=== PATIENT | female | born 1965 | race Caucasian/White ===

== ENCOUNTER 2017-01-17 20:50 | Emergency (ER) | payer BC ==
[~2017-01-17] VITALS: Ht 149.9 cm; Wt 79.6 kg
[~2017-01-17 20:50] MED LIST: CLARITIN10 M3 PO; Celestone IM; DAILY VALUE1 EACH PO; DILAUDID4 MG PO; FIORICET,ESG1 TABLET PO; FLONASE16 G1 BOTH NARES; HYDROCODON-ACE1 EAC7 PO; LABETALOL HCL200 MG PO; MIRALAX17 GM PO; MULTI VIT; MYLICON,MYLANTA80 MG PO; NORCO 5/3251 TABLET PO; PENTASA PO; PENTASA500 MG PO; PERCOCET 5/31 TABLET PO; PREDNISONE5 M2 PO; PREDNISONE5 MG PO; PROMETHAZINE HC25 M1 PO; Procardia XL,Adalat PO; VITRON C; VITRON-C TABLE1 EACH PO; ZANTAC150 MG PO; ZOFRAN ODT4 MG PO; ZOFRAN4 MG PO; [UNRECOGNIZED DRUG - OTHER] PO; predniSONE PO
[2017-01-17 21:49] LABS: MCH 26.9 PG (29.0-34.0); MCHC 31.3 G/DL (30.0-36.0); MCV 85.8 FL (83-99); MEAN PLAT.VOLUME 10.1 uM^3 (9.5-12.4); PLATELET COUNT 350 K/uL (156-360); RBC DIS.WIDTH-SD 43.6 % (39-53); RED BLOOD COUNT 4.43 M/uL (3.80-5.20); WHITE BLOOD COUNT 8.2 K/uL (4.1-10.2)
[2017-01-17 21:59] LABS: CHLORIDE 103 mEq/L (99-109); POTASSIUM 3.6 mEq/L (3.7-5.4); SODIUM 141 mEq/L (136-147)
[2017-01-17 22:01] LABS: GLUCOSE 93 mg/dL (70-99)
[2017-01-17 22:02] LABS: ANION GAP 13 MEQ/L (2-14)
[2017-01-17 22:04] LABS: GFR ESTIMATE (CALCULATED) > 59 mL/min/
[2017-01-17 22:05] LABS: UREA NITROGEN (BUN) 15 mg/dL (9-23)
[2017-01-17 22:10] LABS: TROP-I INTERPRETATION NEGATIVE; TROPONIN-I < 0.01 ng/mL (0.0-0.30)
[2017-01-17 23:53] LABS: D-DIMER ELISA 0.36 mg/L FEU (< 0.57)
[2017-01-18] MEDS ORDERED: VENTOLIN HFA18 GM IH (00:40)
[2017-01-18] MEDS ORDERED: ULTRAM50 MG PO (00:41)
[2017-01-18 00:46] LABS: TROP-I INTERPRETATION NEGATIVE; TROPONIN-I < 0.01 ng/mL (0.0-0.30)
[2017-01-18] MEDS ORDERED: ATIVAN0.5 MG PO (01:44)
[2017-01-18 02:07] VITALS: BP 137/88
== END 2017-01-18 02:09 | disposition home or self-care (01) ==
LOC: EME 20:50
PROVIDERS: Emergency Medicine
DX: R07.9 Chest pain, unspecified (principal); J45.909 Unspecified asthma, uncomplicated
CPT/HCPCS: 71020; 80048; 81003; 84484; 85027; 85379; 93005; 94640; 99281; 99284; J1170

== ENCOUNTER 2018-03-06 16:19 | Emergency (ER) | payer BC ==
[~2018-03-06] VITALS: Ht 149.9 cm; Wt 79.7 kg
[~2018-03-06 16:19] MED LIST changes: +ATIVAN0.5 MG PO; +ULTRAM50 MG PO; +VENTOLIN HFA18 GM IH
[2018-03-06 17:10] LABS: HEMATOCRIT 38.7 % (36.0-46.0); HEMOGLOBIN 12.7 G/DL (11.9-15.5); MCH 28.2 PG (29.0-34.0); MCHC 32.8 G/DL (30.0-36.0); MCV 85.8 FL (83-99); PLATELET COUNT 323 K/uL (156-360); RBC DIS.WIDTH-CV 14.1 % (11.8-14.6); RED BLOOD COUNT 4.51 M/uL (3.80-5.20); WHITE BLOOD COUNT 8.5 K/uL (4.1-10.2)
[2018-03-06 17:18] LABS: CHLORIDE 106 mEq/L (99-109); POTASSIUM 3.7 mEq/L (3.7-5.4); SODIUM 143 mEq/L (136-147)
[2018-03-06 17:20] LABS: GLUCOSE 98 mg/dL (70-99)
[2018-03-06 17:23] LABS: CREATININE 0.8 mg/dL (0.6-1.3); GFR ESTIMATE (CALCULATED) > 59 mL/min/
[2018-03-06 17:24] LABS: UREA NITROGEN (BUN) 18 mg/dL (9-23)
[2018-03-06 17:30] VITALS: BP 121/89
[2018-03-06 17:32] LABS: TROP-I INTERPRETATION NEGATIVE; TROPONIN-I 0.01 ng/mL (0.0-0.30)
[2018-03-06 17:48] LABS: MAGNESIUM 2.2 mg/dL (1.3-2.7)
== END 2018-03-06 19:28 | disposition left against medical advice (07) ==
LOC: EME 16:19
DX: R00.2 Palpitations (principal); I49.3 Ventricular premature depolarization; F41.9 Anxiety disorder, unspecified; J45.909 Unspecified asthma, uncomplicated; Z90.49 Acquired absence of other specified parts of digestive tract; Z88.2 Allergy status to sulfonamides; Z91.040 Latex allergy status; K50.90 Crohn's disease, unspecified, without complications
CPT/HCPCS: 71046; 80048; 83735; 84484; 85027; 93005; 99281; 99284